=== PATIENT | male | born 2005 | race Caucasian/White ===

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

== ENCOUNTER 2025-01-22 20:45 | Emergency (ER) | payer OTHER ==
[~2025-01-22] VITALS: Ht 167.6 cm; Wt 72.6 kg
[~2025-01-22 20:45] MED LIST changes: +AMOCLA875 PO
[2025-01-22] MEDS ORDERED: Ibuprofen 600 MG Tab PO ONE (21:15)
[2025-01-22] MEDS ORDERED: IBUP600 PO (22:06)
[2025-01-22 22:09] VITALS: BP 129/74
== END 2025-01-22 22:08 | disposition home or self-care (01) ==
LOC: ER 20:45
DX: S00.83XA Contusion of other part of head, initial encounter (principal); S60.222A Contusion of left hand, initial encounter; Z79.2 Long term (current) use of antibiotics; Y04.2XXA Assault by strike against or bumped into by another person, initial encounter
CPT/HCPCS: 70450; 70486; 73130; 99284-25; A9270